=== PATIENT | male | born 1940 | race Caucasian/White ===

== ENCOUNTER 2023-01-06 23:14 | Inpatient (IN) | payer MEDICARE, OTHER ==
[~2023-01-06] VITALS: Ht 180.3 cm; Wt 48.5 kg
[2023-01-06] MEDS ORDERED: methylPREDNISolone SOD SUCC 125 MG/2ML VIAL IV ONE (23:30)
[2023-01-06] MEDS ORDERED: ALBUTEROL FS 2.5 MG/0.5 ML VIAL.NEB NEB ONE (23:30)
[2023-01-07] VITALS (13 sets, daily range): BP systolic 94–123; BP diastolic 69–93; TEMP 97.7–98.4; O2SAT 93–99
[2023-01-07] MEDS ORDERED: DILTIAZEM HCL 50 MG IV IV ONE
[2023-01-07] MEDS ORDERED: methylPREDNISolone SOD SUCC 125 MG/2ML VIAL ONE (00:04)
[2023-01-07] MEDS ORDERED: DILTIAZEM HCL 50 MG IV ONE (00:05)
[2023-01-07 00:20] LABS: BASOPHILS % (AUTO) 0.1 % (0.0-2.0); HEMATOCRIT 41 % (39-51); HEMOGLOBIN 12.7 g/dL (13.5-17.5); LYMPHOCYTES % (AUTO) 7.8 % (20.0-44.0); MEAN CORPUSCULAR HEMOGLOBIN 31 PG (26.0-33.0); MEAN CORPUSCULAR HGB CONC 31 g/dl (31.0-36.0); MEAN CORPUSCULAR VOLUME 99 fL (80-96); MONOCYTES # (AUTO) 0.5 K/uL (0.1-1.30); MONOCYTES % (AUTO) 4.3 % (2.0-12.0); NEUTROPHILS # (AUTO) 10.8 K/uL (1.8-8.9); NEUTROPHILS % (AUTO) 87.8 % (43.0-81.0); PLATELET COUNT (AUTO) 213 K/uL (150-450); RED BLOOD CELL COUNT(AUTO) 4.11 MIL/uL (4.5-6.0); RED CELL DISTRIBUTION WIDTH 15.9 % (11.5-15.0); WHITE BLOOD COUNT (AUTO) 12.3 K/uL (4.3-11.0)
[2023-01-07] MEDS ORDERED: ALBUTEROL FS 2.5 MG/0.5 ML VIAL.NEB ONE (00:29)
[2023-01-07 00:33] LABS: CALCIUM, SERUM 9.1 mg/dL (8.5-10.1); CARBON DIOXIDE 30 mmol/L (21-32); CHLORIDE 108 mmol/L (98-107); CREATININE 0.5 mg/dL (0.6-1.3); GLUCOSE 112 mg/dL (74-106); POTASSIUM 4.5 mmol/L (3.5-5.1); SODIUM SERUM 143 mmol/L (136-145); UREA NITROGEN, BLOOD 24 mg/dL (7-18)
[2023-01-07 00:41] LABS: LACTIC ACID 2.4 mmol/L (0.4-2.0)
[2023-01-07 00:46] LABS: ALANINE AMINOTRANSFERASE 27 U/L (12-78); ALBUMIN 2.1 g/dL (3.4-5.0); ALKALINE PHOSPHATASE 112 U/L (46-116); ASPARTATE AMINOTRANSFERASE 21 U/L (15-37); BILIRUBIN,DIRECT 0.2 mg/dL (0.0-0.2); BILIRUBIN,TOTAL 0.7 mg/dL (0.2-1.0)
[2023-01-07 00:51] LABS: INR 1.04 (0.91-1.10); PARTIAL THROMBOPLASTIN TIME 30.2 SEC (24.3-34.3)
[2023-01-07 01:12] LABS: NT-PRO BNP 1969 pg/mL (0-125)
[2023-01-07] MEDS ORDERED: CEFTRIAXONE 1GM BAG (ER ONLY) 1 GM/50 ML PIGGYBACK IV ONE (02:00)
[2023-01-07] MEDS ORDERED: AZITHROMYCIN 500 MG in IV D5W 250 ML IV ONE (02:00)
[2023-01-07] MEDS ORDERED: CEFTRIAXONE 1GM BAG (ER ONLY) 50 ML IV ONE (02:28)
[2023-01-07] MEDS ORDERED: AZITHROMYCIN 500 MG VIAL ONE (02:28)
[2023-01-07] MEDS ORDERED: ONDANSETRON HCL/PF 4 MG/2 ML VIAL IVP PRN (02:30)
[2023-01-07] MEDS ORDERED: hydrALAZINE HCL IV 20 MG VIAL IV PRN (02:30)
[2023-01-07] MEDS ORDERED: MORPHINE SULFATE INJ 2 MG/ML DISP.SYRIN IV PRN (02:30)
[2023-01-07] MEDS ORDERED: ACETAMINOPHEN 325 MG TABLET PO PRN (02:30)
[2023-01-07] MEDS ORDERED: ALBUTEROL FS 2.5 MG/0.5 ML VIAL.NEB NEB PRN (02:30)
[2023-01-07 03:30] LABS: APPEARANCE,URINE CLEAR (CLEAR); BILIRUBIN,URINE NEGATIVE (NEGATIVE); BLOOD, URINE NEGATIVE Ery/uL (NEGATIVE); COLOR,URINE YELLOW (YELLOW); KETONES,URINE TRACE mg/dL (NEGATIVE); LEUKOCYTE ESTERASE ,URINE NEGATIVE (NEGATIVE); NITRITE, URINE NEGATIVE (NEGATIVE); PROTEIN,URINE TRACE mg/dl (NEGATIVE); UGLUCOSE NEGATIVE (NEGATIVE)
[2023-01-07 04:11] LABS: ADD URINE CULTURE NO; BACTERIA,URINE None seen /HPF (None Seen); MUCUS,URINE Few /LPF (None Seen); RBC,URINE 0-2 /HPF (0-2); SQUAMOUS EPITHELIAL CELL,UR None Seen /HPF (None Seen); WBC,URINE 0-2 /HPF (0-3)
[2023-01-07] MEDS ORDERED: CEFEPIME 2 GM in IV D5W 100 ML IV SCH (05:00)
[2023-01-07] MEDS ORDERED: CEFEPIME 1 GM VIAL ONE (05:21)
[2023-01-07] MEDS ORDERED: IPRATROPIUM/ALBUTEROL INHALER IH SCH (06:00)
[2023-01-07] MEDS ORDERED: ONDA4TAB5 PO (08:21)
[2023-01-07] MEDS ORDERED: FLUT16SP (08:21)
[2023-01-07] MEDS ORDERED: HYDR-3642 PO (08:21)
[2023-01-07] MEDS ORDERED: MAGN400O6 PO (08:21)
[2023-01-07] MEDS ORDERED: FAMO20TA8 PO (08:21)
[2023-01-07] MEDS ORDERED: ACET650S11 RC (08:21)
[2023-01-07] MEDS ORDERED: MAG30ORA PO (08:21)
[2023-01-07] MEDS ORDERED: FURO-145 PO (08:21)
[2023-01-07] MEDS ORDERED: NORT10CA PO (08:21)
[2023-01-07] MEDS ORDERED: PRED5TAB PO (08:21)
[2023-01-07] MEDS ORDERED: APIX2.5T PO (08:21)
[2023-01-07] MEDS ORDERED: CETI-108 PO (08:21)
[2023-01-07] MEDS ORDERED: LISI-768 PO (08:21)
[2023-01-07] MEDS ORDERED: ARGI1POW13 PO (08:21)
[2023-01-07] MEDS ORDERED: AMIN30LI2 PO (08:21)
[2023-01-07] MEDS ORDERED: ACET-2605 PO (08:21)
[2023-01-07] MEDS ORDERED: BISA10SU11 RC (08:21)
[2023-01-07] MEDS ORDERED: LORA2ORA PO (08:21)
[2023-01-07] MEDS ORDERED: ASCO-352 PO (08:21)
[2023-01-07] MEDS ORDERED: ACET-868 PO ×2 (08:21)
[2023-01-07] MEDS ORDERED: ATRO2DRO4 SL (08:21)
[2023-01-07] MEDS ORDERED: POLY15DR40 EACHEYE (08:21)
[2023-01-07] MEDS ORDERED: POTA20TA83 PO (08:21)
[2023-01-07] MEDS ORDERED: MULT-447 PO (08:21)
[2023-01-07] MEDS ORDERED: PRED10TA PO (08:21)
[2023-01-07] MEDS ORDERED: METO25TA3 PO (08:21)
[2023-01-07] MEDS ORDERED: AZEL137S7 (08:21)
[2023-01-07] MEDS ORDERED: ATOR20TA PO (08:21)
[2023-01-07] MEDS ORDERED: ZINC50TA65 PO (08:21)
[2023-01-07] MEDS ORDERED: OLOD4MIS2 IH (08:21)
[2023-01-07] MEDS: FUROSEMIDE 40 MG/4 ML VIAL IV SCH (08:53)
[2023-01-07] MEDS ORDERED: HEPARIN SODIUM, PORCINE 5000 UNITS/1 ML VIAL SQ SCH (09:00)
[2023-01-07] MEDS: ALBUTEROL FS 2.5 MG/0.5 ML VIAL.NEB NEB SCH ×3 (09:03→20:23)
[2023-01-07] MEDS: IPRATROPIUM NEB FS 0.5 MG/2.5 ML AMPUL.NEB IH SCH ×3 (09:04→20:23)
[2023-01-07] MEDS ORDERED: APIXABAN 2.5 MG TABLET PO SCH (10:00)
[2023-01-07] MEDS ORDERED: ATROPINE SULFATE OPHTH SOLN 15 ML BOTTLE SL PRN (10:00)
[2023-01-07] MEDS: METOPROLOL SUCCINATE 25 MG TAB.SR.24H PO SCH (10:43)
[2023-01-07] MEDS: LISINOPRIL (5MG) 5 MG TABLET PO SCH (10:43)
[2023-01-07] MEDS: FAMOTIDINE (20 MG) 20 MG TABLET PO SCH (10:44)
[2023-01-07] MEDS: CEFEPIME 2 GM in IV D5W 100 ML IV SCH ×2 (12:11→20:31)
[2023-01-07] MEDS ORDERED: LIDOCAINE 2%-EPI 1:200,000 20 ML VIAL IJ ONE (14:00)
[2023-01-07] MEDS ORDERED: LIDOCAINE 1%-EPI 1:100,000 20 ML VIAL IJ ONE (14:00)
[2023-01-07] MEDS: methylPREDNISolone SOD SUCC 40 MG/ML VIAL IV SCH ×2 (14:54→21:27)
[2023-01-07] MEDS: THERAHONEY GEL 1.5 OZ TUBE TP SCH (14:56)
[2023-01-07] MEDS: ENSURE ENLIVE CHOC 237 ML CAN PO SCH (16:59)
[2023-01-07] MEDS: APIXABAN 2.5 MG TABLET PO SCH (17:03)
[2023-01-07] MEDS: NORTRIPTYLINE HCL 10 MG CAPSULE PO SCH (21:27)
[2023-01-08] VITALS (15 sets, daily range): BP systolic 90–137; BP diastolic 66–91; TEMP 97.5–97.7; O2SAT 90–100
[2023-01-08] MEDS: ALBUTEROL FS 2.5 MG/0.5 ML VIAL.NEB NEB SCH ×4 (01:21→20:14)
[2023-01-08] MEDS: IPRATROPIUM NEB FS 0.5 MG/2.5 ML AMPUL.NEB IH SCH ×4 (01:21→20:14)
[2023-01-08] MEDS: CEFEPIME 2 GM in IV D5W 100 ML IV SCH ×3 (04:33→20:31)
[2023-01-08] MEDS: methylPREDNISolone SOD SUCC 40 MG/ML VIAL IV SCH ×3 (04:50→22:28)
[2023-01-08 06:52] LABS: HEMATOCRIT 35 % (39-51); HEMOGLOBIN 11.5 g/dL (13.5-17.5); LYMPHOCYTES # (AUTO) 0.8 K/uL (0.8-4.8); LYMPHOCYTES % (AUTO) 6.9 % (20.0-44.0); MEAN CORPUSCULAR HEMOGLOBIN 31 PG (26.0-33.0); MEAN CORPUSCULAR HGB CONC 33 g/dl (31.0-36.0); MEAN CORPUSCULAR VOLUME 95 fL (80-96); MONOCYTES # (AUTO) 0.5 K/uL (0.1-1.30); MONOCYTES % (AUTO) 4.5 % (2.0-12.0); NEUTROPHILS # (AUTO) 9.7 K/uL (1.8-8.9); NEUTROPHILS % (AUTO) 88.6 % (43.0-81.0); PLATELET COUNT (AUTO) 197 K/uL (150-450); RED BLOOD CELL COUNT(AUTO) 3.69 MIL/uL (4.5-6.0); RED CELL DISTRIBUTION WIDTH 14.9 % (11.5-15.0)
[2023-01-08 07:28] LABS: ALANINE AMINOTRANSFERASE 21 U/L (12-78); ALBUMIN 1.8 g/dL (3.4-5.0); ALKALINE PHOSPHATASE 87 U/L (46-116); ASPARTATE AMINOTRANSFERASE 15 U/L (15-37); BILIRUBIN,TOTAL 0.5 mg/dL (0.2-1.0); CALCIUM, SERUM 8.6 mg/dL (8.5-10.1); CARBON DIOXIDE 29 mmol/L (21-32); CHLORIDE 104 mmol/L (98-107); CREATININE 0.5 mg/dL (0.6-1.3); GLUCOSE 115 mg/dL (74-106); MAGNESIUM 1.6 mg/dL (1.8-2.4); PHOSPHORUS 3.7 mg/dL (2.5-4.9); POTASSIUM 3.5 mmol/L (3.5-5.1); SODIUM SERUM 140 mmol/L (136-145); TOTAL PROTEIN, SERUM 5.4 g/dL (6.4-8.2); UREA NITROGEN, BLOOD 20 mg/dL (7-18)
[2023-01-08] MEDS: ENSURE ENLIVE CHOC 237 ML CAN PO SCH ×3 (08:00→17:42)
[2023-01-08] MEDS: LISINOPRIL (5MG) 5 MG TABLET PO SCH (09:00)
[2023-01-08] MEDS: METOPROLOL SUCCINATE 25 MG TAB.SR.24H PO SCH (09:00)
[2023-01-08] MEDS: MULTIVIT W/MINERALS 1 TAB TABLET PO SCH (09:20)
[2023-01-08] MEDS: FUROSEMIDE 40 MG/4 ML VIAL IV SCH (09:20)
[2023-01-08] MEDS: FAMOTIDINE (20 MG) 20 MG TABLET PO SCH (09:20)
[2023-01-08] MEDS: APIXABAN 2.5 MG TABLET PO SCH ×2 (09:21→17:26)
[2023-01-08] MEDS: THERAHONEY GEL 1.5 OZ TUBE TP SCH (09:22)
[2023-01-08] MEDS ORDERED: MAGNESIUM OXIDE 400 MG TABLET PO ONE (11:00)
[2023-01-08] MEDS: NORTRIPTYLINE HCL 10 MG CAPSULE PO SCH (22:28)
[2023-01-09] VITALS (13 sets, daily range): BP systolic 90–117; BP diastolic 73–91; TEMP 97.3–97.5; O2SAT 93–100
[2023-01-09] MEDS: IPRATROPIUM NEB FS 0.5 MG/2.5 ML AMPUL.NEB IH SCH ×5 (02:13→20:53)
[2023-01-09] MEDS: ALBUTEROL FS 2.5 MG/0.5 ML VIAL.NEB NEB SCH ×3 (02:13→13:11)
[2023-01-09] MEDS: CEFEPIME 2 GM in IV D5W 100 ML IV SCH ×2 (04:33→20:49)
[2023-01-09] MEDS: methylPREDNISolone SOD SUCC 40 MG/ML VIAL IV SCH ×3 (04:45→21:39)
[2023-01-09 06:58] LABS: HEMATOCRIT 38 % (39-51); HEMOGLOBIN 12.2 g/dL (13.5-17.5); LYMPHOCYTES # (AUTO) 0.6 K/uL (0.8-4.8); LYMPHOCYTES % (AUTO) 3.5 % (20.0-44.0); MEAN CORPUSCULAR HEMOGLOBIN 31 PG (26.0-33.0); MEAN CORPUSCULAR HGB CONC 32 g/dl (31.0-36.0); MEAN CORPUSCULAR VOLUME 94 fL (80-96); MONOCYTES # (AUTO) 0.8 K/uL (0.1-1.30); MONOCYTES % (AUTO) 4.6 % (2.0-12.0); NEUTROPHILS % (AUTO) 91.9 % (43.0-81.0); PLATELET COUNT (AUTO) 196 K/uL (150-450); RED BLOOD CELL COUNT(AUTO) 3.98 MIL/uL (4.5-6.0); RED CELL DISTRIBUTION WIDTH 14.8 % (11.5-15.0); WHITE BLOOD COUNT (AUTO) 16.3 K/uL (4.3-11.0)
[2023-01-09] MEDS ORDERED: LIDOCAINE MPF 1%-EPI 1:200,000 30 ML VIAL IJ ONE (07:30)
[2023-01-09] MEDS ORDERED: LIDOCAINE 1%-EPI 1:100,000 20 ML VIAL IJ ONE (07:30)
[2023-01-09] MEDS ORDERED: SILVER NITRATE APPLICATOR 1 EA BOX TP PRN (07:30)
[2023-01-09 07:34] LABS: ALANINE AMINOTRANSFERASE 24 U/L (12-78); ALBUMIN 1.9 g/dL (3.4-5.0); ALKALINE PHOSPHATASE 93 U/L (46-116); ASPARTATE AMINOTRANSFERASE 16 U/L (15-37); BILIRUBIN,TOTAL 0.5 mg/dL (0.2-1.0); CARBON DIOXIDE 34 mmol/L (21-32); CHLORIDE 101 mmol/L (98-107); CREATININE 0.7 mg/dL (0.6-1.3); GLUCOSE 142 mg/dL (74-106); MAGNESIUM 2.1 mg/dL (1.8-2.4); PHOSPHORUS 2.9 mg/dL (2.5-4.9); POTASSIUM 3.4 mmol/L (3.5-5.1); SODIUM SERUM 142 mmol/L (136-145); TOTAL PROTEIN, SERUM 5.6 g/dL (6.4-8.2); UREA NITROGEN, BLOOD 27 mg/dL (7-18)
[2023-01-09] MEDS: ENSURE ENLIVE CHOC 237 ML CAN PO SCH ×3 (08:00→17:00)
[2023-01-09] MEDS: FUROSEMIDE 40 MG/4 ML VIAL IV SCH (08:57)
[2023-01-09] MEDS: MULTIVIT W/MINERALS 1 TAB TABLET PO SCH (08:57)
[2023-01-09] MEDS: FAMOTIDINE (20 MG) 20 MG TABLET PO SCH (08:58)
[2023-01-09] MEDS: LISINOPRIL (5MG) 5 MG TABLET PO SCH (08:58)
[2023-01-09] MEDS: METOPROLOL SUCCINATE 25 MG TAB.SR.24H PO SCH (08:58)
[2023-01-09] MEDS: APIXABAN 2.5 MG TABLET PO SCH ×2 (08:59→17:01)
[2023-01-09] MEDS: THERAHONEY GEL 1.5 OZ TUBE TP SCH (09:02)
[2023-01-09] MEDS ORDERED: ENOXAPARIN SODIUM 40 MG/0.4 ML DISP.SYRIN SQ SCH (09:30)
[2023-01-09] MEDS: POTASSIUM CHLORIDE 20 MEQ TAB.PRT.SR PO SCH ×3 (10:26→12:53)
[2023-01-09] MEDS: FUROSEMIDE 100 MG/10 ML VIAL IV SCH ×3 (10:26→17:00)
[2023-01-09] MEDS ORDERED: ALBUTEROL FS 2.5 MG/0.5 ML VIAL.NEB NEB PRN (15:00)
[2023-01-09] MEDS: NORTRIPTYLINE HCL 10 MG CAPSULE PO SCH (21:39)
[2023-01-10] VITALS (11 sets, daily range): BP systolic 105–120; BP diastolic 83–97; TEMP 97.5–97.6; O2SAT 90–99
[2023-01-10] MEDS: IPRATROPIUM NEB FS 0.5 MG/2.5 ML AMPUL.NEB IH SCH ×4 (00:53→20:30)
[2023-01-10] MEDS: methylPREDNISolone SOD SUCC 40 MG/ML VIAL IV SCH ×2 (05:38→13:35)
[2023-01-10 05:58] LABS: BASOPHILS # (AUTO) 0.1 K/uL (0.0-0.2); BASOPHILS % (AUTO) 0.7 % (0.0-2.0); EOSINOPHILS # (AUTO) 0.1 K/uL (0.0-0.7); EOSINOPHILS % (AUTO) 0.3 % (0.0-6.0); HEMATOCRIT 39 % (39-51); HEMOGLOBIN 12.5 g/dL (13.5-17.5); LYMPHOCYTES # (AUTO) 0.5 K/uL (0.8-4.8); LYMPHOCYTES % (AUTO) 2.7 % (20.0-44.0); MEAN CORPUSCULAR HEMOGLOBIN 31 PG (26.0-33.0); MEAN CORPUSCULAR HGB CONC 32 g/dl (31.0-36.0); MEAN CORPUSCULAR VOLUME 95 fL (80-96); MONOCYTES # (AUTO) 0.6 K/uL (0.1-1.30); MONOCYTES % (AUTO) 3.7 % (2.0-12.0); NEUTROPHILS # (AUTO) 15.8 K/uL (1.8-8.9); NEUTROPHILS % (AUTO) 92.6 % (43.0-81.0); PLATELET COUNT (AUTO) 195 K/uL (150-450); RED CELL DISTRIBUTION WIDTH 14.8 % (11.5-15.0)
[2023-01-10 06:16] LABS: ALANINE AMINOTRANSFERASE 27 U/L (12-78); ALBUMIN 2.1 g/dL (3.4-5.0); ALKALINE PHOSPHATASE 103 U/L (46-116); ASPARTATE AMINOTRANSFERASE 19 U/L (15-37); BILIRUBIN,TOTAL 0.5 mg/dL (0.2-1.0); CALCIUM, SERUM 9.4 mg/dL (8.5-10.1); CARBON DIOXIDE 34 mmol/L (21-32); CHLORIDE 100 mmol/L (98-107); CREATININE 0.7 mg/dL (0.6-1.3); GLUCOSE 115 mg/dL (74-106); MAGNESIUM 2.3 mg/dL (1.8-2.4); PHOSPHORUS 2.5 mg/dL (2.5-4.9); POTASSIUM 3.3 mmol/L (3.5-5.1); SODIUM SERUM 141 mmol/L (136-145); TOTAL PROTEIN, SERUM 5.8 g/dL (6.4-8.2); UREA NITROGEN, BLOOD 35 mg/dL (7-18)
[2023-01-10] MEDS: ENSURE ENLIVE CHOC 237 ML CAN PO SCH ×3 (08:00→17:37)
[2023-01-10] MEDS: CEFEPIME 2 GM in IV D5W 100 ML IV SCH ×2 (09:45→21:01)
[2023-01-10] MEDS: MULTIVIT W/MINERALS 1 TAB TABLET PO SCH (09:48)
[2023-01-10] MEDS: FAMOTIDINE (20 MG) 20 MG TABLET PO SCH (09:48)
[2023-01-10] MEDS: APIXABAN 2.5 MG TABLET PO SCH ×2 (10:00→17:42)
[2023-01-10] MEDS ORDERED: POTASSIUM CHLORIDE 20 MEQ TAB.PRT.SR PO SCH (10:00)
[2023-01-10] MEDS: LISINOPRIL (5MG) 5 MG TABLET PO SCH (10:01)
[2023-01-10] MEDS: METOPROLOL SUCCINATE 25 MG TAB.SR.24H PO SCH ×3 (10:18→21:21)
[2023-01-10] MEDS: THERAHONEY GEL 1.5 OZ TUBE TP SCH (11:32)
[2023-01-10] MEDS: NORTRIPTYLINE HCL 10 MG CAPSULE PO SCH (21:20)
[2023-01-11] MEDS: IPRATROPIUM NEB FS 0.5 MG/2.5 ML AMPUL.NEB IH SCH ×3 (01:30→14:28)
[2023-01-11 07:47] VITALS: O2SAT 92
[2023-01-11 07:57] VITALS: O2SAT 99
[2023-01-11 08:00] VITALS: BP 105/81; TEMP 98.6; O2SAT 92
[2023-01-11] MEDS: ENSURE ENLIVE CHOC 237 ML CAN PO SCH ×2 (08:38→12:00)
[2023-01-11] MEDS: FAMOTIDINE (20 MG) 20 MG TABLET PO SCH (08:41)
[2023-01-11] MEDS: MULTIVIT W/MINERALS 1 TAB TABLET PO SCH (08:41)
[2023-01-11] MEDS: LISINOPRIL (5MG) 5 MG TABLET PO SCH (08:41)
[2023-01-11] MEDS: CEFEPIME 2 GM in IV D5W 100 ML IV SCH (08:41)
[2023-01-11] MEDS: METOPROLOL SUCCINATE 25 MG TAB.SR.24H PO SCH ×2 (08:42→13:19)
[2023-01-11] MEDS: APIXABAN 2.5 MG TABLET PO SCH (08:43)
[2023-01-11] MEDS: THERAHONEY GEL 1.5 OZ TUBE TP SCH (08:44)
[2023-01-11 11:57] LABS: CALCIUM, SERUM 9.6 mg/dL (8.5-10.1); CREATININE 0.8 mg/dL (0.6-1.3); POTASSIUM 4.2 mmol/L (3.5-5.1)
[2023-01-11 13:19] VITALS: BP 119/89
[2023-01-11 14:28] VITALS: O2SAT 94
[2023-01-11 14:38] VITALS: O2SAT 98
[2023-01-12] MEDS ORDERED: IPRA0.2S9 IH (09:10)
[2023-01-12] MEDS ORDERED: ALBU1.257 IH (09:10)
== END 2023-01-11 14:30 | DRG 871 ==
LOC: ER 23:27 → TELE 01-07 03:03 → MED 01-09 12:06
PROVIDERS: ATTEND Internal Medicine
DX: A41.9 Sepsis, unspecified organism (principal); I50.33 Acute on chronic diastolic (congestive) heart failure; J96.01 Acute respiratory failure with hypoxia; J18.9 Pneumonia, unspecified organism; J44.0 Chronic obstructive pulmonary disease with (acute) lower respiratory infection; J44.1 Chronic obstructive pulmonary disease with (acute) exacerbation; E87.20 Acidosis, unspecified; I42.9 Cardiomyopathy, unspecified; I48.20 Chronic atrial fibrillation, unspecified; D68.69 Other thrombophilia; I11.0 Hypertensive heart disease with heart failure; E87.6 Hypokalemia; F32.9 Major depressive disorder, single episode, unspecified; Z79.01 Long term (current) use of anticoagulants; Z86.73 Personal history of transient ischemic attack (TIA), and cerebral infarction without residual deficits; F03.90 Unspecified dementia, unspecified severity, without behavioral disturbance, psychotic disturbance, mood disturbance, and anxiety; R53.1 Weakness; I73.9 Peripheral vascular disease, unspecified; L89.156 Pressure-induced deep tissue damage of sacral region; L89.100 Pressure ulcer of unspecified part of back, unstageable; L89.020 Pressure ulcer of left elbow, unstageable; F09 Unspecified mental disorder due to known physiological condition; S91.302A Unspecified open wound, left foot, initial encounter; S91.301A Unspecified open wound, right foot, initial encounter; X58.XXXA Exposure to other specified factors, initial encounter; Y93.9 Activity, unspecified; Y92.129 Unspecified place in nursing home as the place of occurrence of the external cause; S90.821A Blister (nonthermal), right foot, initial encounter; Z20.822 Contact with and (suspected) exposure to COVID-19
CPT/HCPCS: 36415; 71045-TC; 71250-TC; 80048-TC; 80053-TC; 80076-TC; 81001; 83605-TC; 83735-TC; 83880; 84100-TC; 84484-TC; 85025-TC; 85730-TC; 87040-TC; 93307-TC; 94799-TC; A4223; A6403; C9803; G0378; J0456; J0692; J0696; J1644; J1940; J2270; J2920; J2930; J3490; J7040; J7060

== ENCOUNTER 2023-01-12 07:48 | Inpatient (IN) | payer OTHER ==
[2023-01-12] VITALS (15 sets, daily range): BP systolic 76–179; BP diastolic 57–157; TEMP 98.7; O2SAT 91–98
[~2023-01-12] VITALS: Ht 177.8 cm; Wt 61.7 kg
[~2023-01-12 07:48] MED LIST: ACET-2605 PO; ACET-868 PO; ACET650S11 RC; AMIN30LI2 PO; APIX2.5T PO; ARGI1POW13 PO; ASCO-352 PO; ATOR20TA PO; ATRO2DRO4 SL; AZEL137S7; BISA10SU11 RC; CETI-108 PO; FAMO20TA8 PO; FLUT16SP; FURO-145 PO; HYDR-3642 PO; LISI-768 PO; LORA2ORA PO; MAG30ORA PO; MAGN400O6 PO; METO25TA3 PO; MULT-447 PO; NORT10CA PO; OLOD4MIS2 IH; ONDA4TAB5 PO; POLY15DR40 EACHEYE; POTA20TA83 PO; PRED10TA PO; PRED5TAB PO; ZINC50TA65 PO
[2023-01-12] MEDS ORDERED: IV NS 0.9% 1,000 ML BAG IV ONE (08:30)
[2023-01-12 09:03] LABS: APPEARANCE,URINE CLEAR (CLEAR); BILIRUBIN,URINE NEGATIVE (NEGATIVE); BLOOD, URINE 2+ Ery/uL (NEGATIVE); COLOR,URINE DARK YELLOW (YELLOW); KETONES,URINE 1+ mg/dL (NEGATIVE); LEUKOCYTE ESTERASE ,URINE NEGATIVE (NEGATIVE); NITRITE, URINE NEGATIVE (NEGATIVE); PROTEIN,URINE 2+ mg/dl (NEGATIVE); UGLUCOSE NEGATIVE (NEGATIVE); UROBILINOGEN,URINE 0.2 EU/dL (0.2)
[2023-01-12] MEDS ORDERED: IPRA0.2S9 IH (09:10)
[2023-01-12] MEDS ORDERED: ALBU1.257 IH (09:10)
[2023-01-12 09:11] LABS: BASOPHILS % (AUTO) 0.2 % (0.0-2.0); EOSINOPHILS % (AUTO) 0.1 % (0.0-6.0); HEMATOCRIT 33 % (39-51); HEMOGLOBIN 10.8 g/dL (13.5-17.5); LYMPHOCYTES % (AUTO) 6.7 % (20.0-44.0); MEAN CORPUSCULAR HEMOGLOBIN 32 PG (26.0-33.0); MEAN CORPUSCULAR HGB CONC 33 g/dl (31.0-36.0); MEAN CORPUSCULAR VOLUME 97 fL (80-96); MONOCYTES # (AUTO) 0.6 K/uL (0.1-1.30); NEUTROPHILS # (AUTO) 12.7 K/uL (1.8-8.9); PLATELET COUNT (AUTO) 123 K/uL (150-450); RED BLOOD CELL COUNT(AUTO) 3.43 MIL/uL (4.5-6.0); RED CELL DISTRIBUTION WIDTH 14.6 % (11.5-15.0); WHITE BLOOD COUNT (AUTO) 14.3 K/uL (4.3-11.0)
[2023-01-12 09:15] LABS: ADD URINE CULTURE NO; BACTERIA,URINE 1+ /HPF (None Seen); MUCUS,URINE Moderate /LPF (None Seen); WBC,URINE 0-2 /HPF (0-3)
[2023-01-12 09:24] LABS: INR 1.23 (0.91-1.10); PARTIAL THROMBOPLASTIN TIME 34.5 SEC (24.3-34.3); PROTHROMBIN TIME 12.9 SECS (9.2-11.1)
[2023-01-12 09:25] LABS: ALANINE AMINOTRANSFERASE 22 U/L (12-78); ALKALINE PHOSPHATASE 82 U/L (46-116); ASPARTATE AMINOTRANSFERASE 24 U/L (15-37); BILIRUBIN,DIRECT 0.3 mg/dL (0.0-0.2); BILIRUBIN,TOTAL 0.8 mg/dL (0.2-1.0); CALCIUM, SERUM 8.7 mg/dL (8.5-10.1); CARBON DIOXIDE 29 mmol/L (21-32); CHLORIDE 103 mmol/L (98-107); CREATININE 0.9 mg/dL (0.6-1.3); GLUCOSE 88 mg/dL (74-106); POTASSIUM 3.3 mmol/L (3.5-5.1); SODIUM SERUM 137 mmol/L (136-145); TOTAL PROTEIN, SERUM 4.7 g/dL (6.4-8.2); UREA NITROGEN, BLOOD 41 mg/dL (7-18)
[2023-01-12 09:27] LABS: LACTIC ACID 1.1 mmol/L (0.4-2.0)
[2023-01-12 09:38] LABS: ALBUMIN 1.4 g/dL (3.4-5.0)
[2023-01-12] MEDS ORDERED: VANCOMYCIN 1 GM in IV D5W 250 ML IV ONE (10:00)
[2023-01-12] MEDS ORDERED: CEFEPIME 1 GM in IV D5W 50 ML IV ONE (10:00)
[2023-01-12] MEDS ORDERED: MAGNESIUM HYDROXIDE 30 ML UDC PO PRN (15:00)
[2023-01-12] MEDS ORDERED: NOREPINEPHRINE 8 MG in IV NS 0.9% 242 ML IV PRN (15:00)
[2023-01-12] MEDS ORDERED: ACETAMINOPHEN 325 MG TABLET PO PRN (15:00)
[2023-01-12] MEDS ORDERED: MAG HYDROX/AL HYDROX/SIMETH 30 ML UDC PO PRN (15:00)
[2023-01-12] MEDS ORDERED: ENOXAPARIN SODIUM 40 MG/0.4 ML DISP.SYRIN SQ SCH (15:00)
[2023-01-12] MEDS ORDERED: ONDANSETRON HCL/PF 4 MG/2 ML VIAL IVP PRN (15:00)
[2023-01-12] MEDS ORDERED: ZOLPIDEM TARTRATE 5 MG TABLET PO PRN (15:00)
[2023-01-12] MEDS ORDERED: Z GUARD REMEDY 4 OZ OINT TP PRN (15:00)
[2023-01-12] MEDS ORDERED: NOREPINEPHRINE 8MG/250ML RTU 250 ML IV ONE (15:16)
[2023-01-12] MEDS ORDERED: ATROPINE SULFATE OPHTH SOLN 15 ML BOTTLE SL PRN (15:30)
[2023-01-12] MEDS ORDERED: IV NS 0.9% 500 ML BAG IV ONE (16:00)
[2023-01-12] MEDS ORDERED: APIXABAN 2.5 MG TABLET PO SCH (17:00)
[2023-01-12] MEDS: NORTRIPTYLINE HCL 10 MG CAPSULE PO SCH (21:39)
[2023-01-12] MEDS: NOREPINEPHRINE 8 MG in IV NS 0.9% 242 ML IV PRN (21:43)
[2023-01-12] MEDS: CEFEPIME 2 GM in IV D5W 100 ML IV SCH (21:44)
[2023-01-13] VITALS (79 sets, daily range): BP systolic 88–132; BP diastolic 62–92; TEMP 97.9–98.6; O2SAT 88–100
[2023-01-13] MEDS: VANCOMYCIN HCL 0.75 GM in IV D5W 250 ML IV SCH ×2 (01:02→12:16)
[2023-01-13 05:01] LABS: BASOPHILS % (AUTO) 0.1 % (0.0-2.0); EOSINOPHILS % (AUTO) 0.3 % (0.0-6.0); HEMATOCRIT 32 % (39-51); HEMOGLOBIN 10.5 g/dL (13.5-17.5); LYMPHOCYTES # (AUTO) 0.6 K/uL (0.8-4.8); LYMPHOCYTES % (AUTO) 4.4 % (20.0-44.0); MEAN CORPUSCULAR HEMOGLOBIN 31 PG (26.0-33.0); MEAN CORPUSCULAR HGB CONC 33 g/dl (31.0-36.0); MEAN CORPUSCULAR VOLUME 96 fL (80-96); MONOCYTES # (AUTO) 0.5 K/uL (0.1-1.30); MONOCYTES % (AUTO) 3.5 % (2.0-12.0); NEUTROPHILS # (AUTO) 12.6 K/uL (1.8-8.9); NEUTROPHILS % (AUTO) 91.7 % (43.0-81.0); PLATELET COUNT (AUTO) 136 K/uL (150-450); RED BLOOD CELL COUNT(AUTO) 3.37 MIL/uL (4.5-6.0); RED CELL DISTRIBUTION WIDTH 14.9 % (11.5-15.0); WHITE BLOOD COUNT (AUTO) 13.8 K/uL (4.3-11.0)
[2023-01-13 05:21] LABS: CHOLESTEROL 106 mg/dL (<200); HDL CHOLESTEROL 44 mg/dL (40-60); LDL 46 mg/dL (0-99); TRIGLYCERIDES 67 mg/dL (30-150)
[2023-01-13 05:24] LABS: CALCIUM, SERUM 8.6 mg/dL (8.5-10.1); CARBON DIOXIDE 28 mmol/L (21-32); CHLORIDE 103 mmol/L (98-107); CREATININE 0.6 mg/dL (0.6-1.3); GLUCOSE 123 mg/dL (74-106); MAGNESIUM 1.6 mg/dL (1.8-2.4); PHOSPHORUS 2.2 mg/dL (2.5-4.9); SODIUM SERUM 139 mmol/L (136-145); UREA NITROGEN, BLOOD 27 mg/dL (7-18)
[2023-01-13] MEDS: NOREPINEPHRINE 8 MG in IV NS 0.9% 242 ML IV PRN (05:52)
[2023-01-13] MEDS: POTASSIUM CL. PREMIX PERIPHER. 50 ML IV SCH ×6 (08:20→13:26)
[2023-01-13] MEDS: Magnesium 1GM/D5W 100ML PREMIX 100 ML IV SCH ×2 (08:29→10:20)
[2023-01-13] MEDS: CEFEPIME 2 GM in IV D5W 100 ML IV SCH ×2 (08:30→20:05)
[2023-01-13] MEDS ORDERED: THERAHONEY GEL 1.5 OZ TUBE TP SCH (09:00)
[2023-01-13] MEDS: predniSONE 5 MG TABLET PO SCH (09:00)
[2023-01-13] MEDS ORDERED: METOPROLOL SUCCINATE 25 MG TAB.SR.24H PO SCH (09:00)
[2023-01-13] MEDS: PANTOPRAZOLE 40 MG VIAL IV SCH (09:10)
[2023-01-13] MEDS ORDERED: Sodium Phosphate 15 MMOL in IV NS 0.9% 245 ML IV SCH (10:00)
[2023-01-13] MEDS: DIGOXIN INJ 0.5 MG/2 ML AMPUL IV SCH ×2 (11:24→18:14)
[2023-01-13] MEDS ORDERED: IV NS 0.9% 1,000 ML IV PRN (11:30)
[2023-01-13] MEDS ORDERED: IV NS 0.9% 1,000 ML BAG IV PRN (11:30)
[2023-01-13] MEDS: THERAHONEY GEL 1.5 OZ TUBE TP SCH (14:38)
[2023-01-13] MEDS: NORTRIPTYLINE HCL 10 MG CAPSULE PO SCH (22:00)
[2023-01-13 22:43] LABS: ABG BASE EXCESS 3.7 mmol/L; ABG PCO2 39.1 mmHg (35.0-45.0); ABG PH 7.467 (7.350-7.450); ABG PO2 55.1 mmHg (75.0-100.0); ABG TOTAL HEMOGLOBIN 12.1 G/dL (13.5-18.0); AaDO2 156.2 mmHg; MetHb 0.3 % (0.0-1.5); O2Hb 89.7 % (94.0-97.0); SITE, ABG Right Radial; VENT MODE, BG Nasal Cannula
[2023-01-14] VITALS (25 sets, daily range): BP systolic 98–131; BP diastolic 63–83; TEMP 97.7–98.5; O2SAT 90–100
[2023-01-14] MEDS: DIGOXIN INJ 0.5 MG/2 ML AMPUL IV SCH (00:11)
[2023-01-14] MEDS: VANCOMYCIN HCL 0.75 GM in IV D5W 250 ML IV SCH ×2 (00:11→12:04)
[2023-01-14 05:10] LABS: INR 1.06 (0.91-1.10); PARTIAL THROMBOPLASTIN TIME 32.3 SEC (24.3-34.3); PROTHROMBIN TIME 11.2 SECS (9.2-11.1)
[2023-01-14 05:38] LABS: CALCIUM, SERUM 8.1 mg/dL (8.5-10.1); CARBON DIOXIDE 27 mmol/L (21-32); CHLORIDE 104 mmol/L (98-107); CREATININE 0.6 mg/dL (0.6-1.3); GLUCOSE 74 mg/dL (74-106); PHOSPHORUS 2.4 mg/dL (2.5-4.9); POTASSIUM 3.4 mmol/L (3.5-5.1); SODIUM SERUM 136 mmol/L (136-145); UREA NITROGEN, BLOOD 20 mg/dL (7-18)
[2023-01-14] MEDS ORDERED: LIDOCAINE 1%-EPI 1:100,000 20 ML VIAL TP ONE (07:30)
[2023-01-14] MEDS ORDERED: SILVER NITRATE APPLICATOR 1 EA BOX TP PRN (07:30)
[2023-01-14] MEDS: CEFEPIME 2 GM in IV D5W 100 ML IV SCH ×2 (08:47→20:40)
[2023-01-14] MEDS: POTASSIUM CL. PREMIX PERIPHER. 50 ML IV SCH ×2 (08:47→10:04)
[2023-01-14] MEDS: PANTOPRAZOLE 40 MG VIAL IV SCH (08:48)
[2023-01-14] MEDS: THERAHONEY GEL 1.5 OZ TUBE TP SCH (08:49)
[2023-01-14] MEDS: predniSONE 5 MG TABLET PO SCH (09:00)
[2023-01-14] MEDS ORDERED: IV NS 0.9% 250 ML IV PRN ×2 (09:00)
[2023-01-14] MEDS ORDERED: Sodium Phosphate 15 MMOL in IV NS 0.9% 245 ML IV SCH (11:00)
[2023-01-14] MEDS: NORTRIPTYLINE HCL 10 MG CAPSULE PO SCH (20:40)
[2023-01-15] VITALS (13 sets, daily range): BP systolic 101–130; BP diastolic 63–96; TEMP 97.3–98.3; O2SAT 92–98
[2023-01-15] MEDS: VANCOMYCIN HCL 0.75 GM in IV D5W 250 ML IV SCH ×3 (00:29→23:53)
[2023-01-15 06:38] LABS: CALCIUM, SERUM 8.5 mg/dL (8.5-10.1); CREATININE 0.7 mg/dL (0.6-1.3); PHOSPHORUS 2.6 mg/dL (2.5-4.9); POTASSIUM 2.9 mmol/L (3.5-5.1)
[2023-01-15] MEDS: predniSONE 5 MG TABLET PO SCH (09:00)
[2023-01-15] MEDS: PANTOPRAZOLE 40 MG VIAL IV SCH (09:15)
[2023-01-15] MEDS: CEFEPIME 2 GM in IV D5W 100 ML IV SCH ×2 (09:15→20:48)
[2023-01-15] MEDS: THERAHONEY GEL 1.5 OZ TUBE TP SCH (09:16)
[2023-01-15] MEDS: POTASSIUM CL. PREMIX PERIPHER. 50 ML IV SCH ×8 (09:53→17:10)
[2023-01-15] MEDS: NORTRIPTYLINE HCL 10 MG CAPSULE PO SCH (22:00)
[2023-01-16] VITALS: BP 129/82; TEMP 97.9; O2SAT 97
[2023-01-16 04:00] VITALS: BP 127/83; TEMP 98.6; O2SAT 96
[2023-01-16 07:23] LABS: CALCIUM, SERUM 9.2 mg/dL (8.5-10.1); CREATININE 0.8 mg/dL (0.6-1.3); POTASSIUM 3.9 mmol/L (3.5-5.1)
[2023-01-16 08:00] VITALS: BP 112/69; TEMP 98.6; O2SAT 96
[2023-01-16] MEDS: PANTOPRAZOLE 40 MG VIAL IV SCH (08:42)
[2023-01-16] MEDS: CEFEPIME 2 GM in IV D5W 100 ML IV SCH ×2 (08:42→21:22)
[2023-01-16] MEDS: THERAHONEY GEL 1.5 OZ TUBE TP SCH (08:45)
[2023-01-16] MEDS: predniSONE 5 MG TABLET PO SCH (08:45)
[2023-01-16] MEDS: DAKINS QUARTER STRENGTH (0.125%) 480 ML BOTTLE TOP SCH (10:06)
[2023-01-16 10:21] LABS: ABG BASE EXCESS -2.7 mmol/L; ABG OXYGEN SATURATION 99.4 % (92.0-98.5); ABG PCO2 35.3 mmHg (35.0-45.0); ABG PH 7.403 (7.350-7.450); ABG PO2 290.6 mmHg (75.0-100.0); AaDO2 387.1 mmHg; COHb 0.3 % (0.5-1.5); MetHb 0.2 % (0.0-1.5); O2Hb 98.9 % (94.0-97.0); SITE, ABG Right Femoral; VENT MODE, BG non rebreather
[2023-01-16] MEDS ORDERED: BUMETANIDE INJ 4 MG in IV D5W 24 ML IV ONE (11:00)
[2023-01-16] MEDS: DIGOXIN INJ 0.5 MG/2 ML AMPUL IV SCH ×2 (11:12→17:19)
[2023-01-16] MEDS: VANCOMYCIN HCL 0.75 GM in IV D5W 250 ML IV SCH (11:53)
[2023-01-16 12:00] VITALS: BP 98/52; TEMP 98.6; O2SAT 96
[2023-01-16 17:20] VITALS: BP 100/58; TEMP 98.6; O2SAT 96
[2023-01-16 20:00] VITALS: BP 100/62; TEMP 97.9; O2SAT 95
[2023-01-16] MEDS: NORTRIPTYLINE HCL 10 MG CAPSULE PO SCH (21:38)
[2023-01-17] VITALS (10 sets, daily range): BP systolic 88–105; BP diastolic 45–83; TEMP 97.3–98.5; O2SAT 90–100
[2023-01-17] MEDS: DIGOXIN INJ 0.5 MG/2 ML AMPUL IV SCH ×2 (00:26→12:45)
[2023-01-17] MEDS: VANCOMYCIN 500 MG in IV D5W 100ml IV SCH ×2 (01:22→13:48)
[2023-01-17] MEDS ORDERED: DEXTROSE 50%-WATER 50 ML DISP.SYRIN ONE (04:45)
[2023-01-17] MEDS ORDERED: DEXTROSE 50%-WATER 50 ML DISP.SYRIN IVP ONE (04:47)
[2023-01-17] MEDS: ALBUTEROL FS 2.5 MG/0.5 ML VIAL.NEB NEB PRN (05:04)
[2023-01-17] MEDS ORDERED: IV NS 0.9% 250 ML IV ONE (06:00)
[2023-01-17] MEDS ORDERED: DIGOXIN 0.25 MG TABLET PO SCH ×2 (07:00→13:00)
[2023-01-17 07:17] LABS: CARBON DIOXIDE 23 mmol/L (21-32); CHLORIDE 107 mmol/L (98-107); GLUCOSE 144 mg/dL (74-106); SODIUM SERUM 142 mmol/L (136-145); UREA NITROGEN, BLOOD 22 mg/dL (7-18)
[2023-01-17 07:20] LABS: POTASSIUM 2.7 mmol/L (3.5-5.1)
[2023-01-17] MEDS ORDERED: IV D5/0.45 NACL 1,000 ML IV SCH (08:00)
[2023-01-17 08:05] LABS: MAGNESIUM 1.8 mg/dL (1.8-2.4); PHOSPHORUS 3.1 mg/dL (2.5-4.9)
[2023-01-17] MEDS: PANTOPRAZOLE 40 MG VIAL IV SCH (08:10)
[2023-01-17] MEDS: POTASSIUM CL. PREMIX PERIPHER. 50 ML IV SCH ×4 (08:10→11:20)
[2023-01-17] MEDS: THERAHONEY GEL 1.5 OZ TUBE TP SCH (08:15)
[2023-01-17] MEDS: DAKINS QUARTER STRENGTH (0.125%) 480 ML BOTTLE TOP SCH (08:15)
[2023-01-17] MEDS: CEFEPIME 2 GM in IV D5W 100 ML IV SCH ×2 (09:15→21:14)
[2023-01-17] MEDS: methylPREDNISolone SOD SUCC 40 MG/ML VIAL IV SCH ×2 (12:25→21:13)
[2023-01-17] MEDS: NORTRIPTYLINE HCL 10 MG CAPSULE PO SCH (21:14)
[2023-01-18] VITALS (11 sets, daily range): BP systolic 81–105; BP diastolic 57–74; TEMP 97.5–98.1; O2SAT 88–100
[2023-01-18] MEDS: VANCOMYCIN 500 MG in IV D5W 100ml IV SCH (01:09)
[2023-01-18] MEDS: methylPREDNISolone SOD SUCC 40 MG/ML VIAL IV SCH ×3 (05:12→22:04)
[2023-01-18 07:00] LABS: BASOPHILS % (AUTO) 0.3 % (0.0-2.0); HEMATOCRIT 36 % (39-51); HEMOGLOBIN 11.6 g/dL (13.5-17.5); LYMPHOCYTES # (AUTO) 0.6 K/uL (0.8-4.8); LYMPHOCYTES % (AUTO) 4.4 % (20.0-44.0); MEAN CORPUSCULAR HEMOGLOBIN 31 PG (26.0-33.0); MEAN CORPUSCULAR HGB CONC 32 g/dl (31.0-36.0); MEAN CORPUSCULAR VOLUME 97 fL (80-96); MONOCYTES # (AUTO) 0.6 K/uL (0.1-1.30); NEUTROPHILS % (AUTO) 91.3 % (43.0-81.0); PLATELET COUNT (AUTO) 131 K/uL (150-450); RED BLOOD CELL COUNT(AUTO) 3.72 MIL/uL (4.5-6.0); RED CELL DISTRIBUTION WIDTH 15.1 % (11.5-15.0); WHITE BLOOD COUNT (AUTO) 14.2 K/uL (4.3-11.0)
[2023-01-18 07:14] LABS: CREATININE 0.8 mg/dL (0.6-1.3); POTASSIUM 3.2 mmol/L (3.5-5.1)
[2023-01-18] MEDS ORDERED: FUROSEMIDE 20 MG/2 ML VIAL IV ONE (08:30)
[2023-01-18] MEDS: CEFEPIME 2 GM in IV D5W 100 ML IV SCH ×2 (08:37→21:58)
[2023-01-18] MEDS: PANTOPRAZOLE 40 MG VIAL IV SCH (08:37)
[2023-01-18] MEDS: THERAHONEY GEL 1.5 OZ TUBE TP SCH (09:01)
[2023-01-18] MEDS: DAKINS QUARTER STRENGTH (0.125%) 480 ML BOTTLE TOP SCH (09:01)
[2023-01-18] MEDS: POTASSIUM CL. PREMIX PERIPHER. 50 ML IV SCH ×6 (09:28→14:09)
[2023-01-18] MEDS: DIGOXIN INJ 0.5 MG/2 ML AMPUL IV SCH (13:10)
[2023-01-18] MEDS: NORTRIPTYLINE HCL 10 MG CAPSULE PO SCH (22:00)
[2023-01-18] MEDS: ALBUTEROL FS 2.5 MG/0.5 ML VIAL.NEB NEB PRN (22:46)
[2023-01-19] VITALS: BP 90/62; TEMP 97.7; O2SAT 95
[2023-01-19 04:00] VITALS: BP 90/60; TEMP 97.9; O2SAT 95
[2023-01-19] MEDS: methylPREDNISolone SOD SUCC 40 MG/ML VIAL IV SCH ×3 (04:17→19:53)
[2023-01-19 06:51] LABS: BILIRUBIN,TOTAL 0.4 mg/dL (0.2-1.0); CALCIUM, SERUM 9.3 mg/dL (8.5-10.1); CREATININE 1.3 mg/dL (0.6-1.3); MAGNESIUM 1.8 mg/dL (1.8-2.4); POTASSIUM 3.7 mmol/L (3.5-5.1)
[2023-01-19 06:54] LABS: BASOPHILS % (AUTO) 0.1 % (0.0-2.0); HEMATOCRIT 35 % (39-51); HEMOGLOBIN 11.4 g/dL (13.5-17.5); LYMPHOCYTES # (AUTO) 0.5 K/uL (0.8-4.8); LYMPHOCYTES % (AUTO) 2.3 % (20.0-44.0); MEAN CORPUSCULAR HEMOGLOBIN 31 PG (26.0-33.0); MEAN CORPUSCULAR HGB CONC 33 g/dl (31.0-36.0); MEAN CORPUSCULAR VOLUME 96 fL (80-96); MONOCYTES # (AUTO) 0.7 K/uL (0.1-1.30); MONOCYTES % (AUTO) 3.3 % (2.0-12.0); NEUTROPHILS # (AUTO) 21.4 K/uL (1.8-8.9); NEUTROPHILS % (AUTO) 94.3 % (43.0-81.0); PLATELET COUNT (AUTO) 153 K/uL (150-450); RED BLOOD CELL COUNT(AUTO) 3.66 MIL/uL (4.5-6.0); RED CELL DISTRIBUTION WIDTH 14.9 % (11.5-15.0); WHITE BLOOD COUNT (AUTO) 22.7 K/uL (4.3-11.0)
[2023-01-19 07:05] LABS: ALBUMIN 1.1 g/dL (3.4-5.0)
[2023-01-19 08:00] VITALS: BP 97/64; TEMP 97.9; O2SAT 90
[2023-01-19] MEDS ORDERED: VANCOMYCIN 0.75 GM in IV D5W 250 ML IV SCH ×4 (08:00)
[2023-01-19] MEDS: CEFEPIME 2 GM in IV D5W 100 ML IV SCH ×2 (08:42→20:35)
[2023-01-19] MEDS: DAKINS QUARTER STRENGTH (0.125%) 480 ML BOTTLE TOP SCH (08:42)
[2023-01-19] MEDS: THERAHONEY GEL 1.5 OZ TUBE TP SCH (08:42)
[2023-01-19] MEDS: PANTOPRAZOLE 40 MG VIAL IV SCH (08:42)
[2023-01-19 12:00] VITALS: BP 98/64; TEMP 97.5; O2SAT 92
[2023-01-19] MEDS: DIGOXIN INJ 0.5 MG/2 ML AMPUL IV SCH (12:23)
[2023-01-19 16:00] VITALS: BP 103/64; TEMP 97.5; O2SAT 92
[2023-01-19 20:00] VITALS: BP 100/66; TEMP 97.2; O2SAT 99
[2023-01-19] MEDS: NORTRIPTYLINE HCL 10 MG CAPSULE PO SCH (22:00)
[2023-01-20] VITALS: BP 105/82; TEMP 97.4; O2SAT 97
[2023-01-20] MEDS ORDERED: VANCOMYCIN 0.75 GM in IV D5W 250 ML IV SCH ×2 (02:00→08:00)
[2023-01-20 04:00] VITALS: BP 92/61; TEMP 97.2; O2SAT 97
[2023-01-20 07:02] LABS: CALCIUM, SERUM 9.6 mg/dL (8.5-10.1); CARBON DIOXIDE 22 mmol/L (21-32); CHLORIDE 110 mmol/L (98-107); CREATININE 1.7 mg/dL (0.6-1.3); GLUCOSE 74 mg/dL (74-106); POTASSIUM 4.6 mmol/L (3.5-5.1); SODIUM SERUM 143 mmol/L (136-145); UREA NITROGEN, BLOOD 55 mg/dL (7-18)
[2023-01-20] MEDS: methylPREDNISolone SOD SUCC 40 MG/ML VIAL IV SCH ×2 (07:43→19:48)
[2023-01-20 08:00] VITALS: BP 107/71; TEMP 97.6
[2023-01-20] MEDS: PANTOPRAZOLE 40 MG VIAL IV SCH (08:56)
[2023-01-20] MEDS: CEFEPIME 2 GM in IV D5W 100 ML IV SCH (08:56)
[2023-01-20] MEDS: THERAHONEY GEL 1.5 OZ TUBE TP SCH (08:58)
[2023-01-20] MEDS: DAKINS QUARTER STRENGTH (0.125%) 480 ML BOTTLE TOP SCH (08:58)
[2023-01-20 09:17] LABS: BASOPHILS # (AUTO) 0.1 K/uL (0.0-0.2); BASOPHILS % (AUTO) 0.4 % (0.0-2.0); HEMATOCRIT 40 % (39-51); HEMOGLOBIN 12.2 g/dL (13.5-17.5); LYMPHOCYTES # (AUTO) 0.6 K/uL (0.8-4.8); LYMPHOCYTES % (AUTO) 1.8 % (20.0-44.0); MEAN CORPUSCULAR HEMOGLOBIN 30 PG (26.0-33.0); MEAN CORPUSCULAR HGB CONC 31 g/dl (31.0-36.0); MEAN CORPUSCULAR VOLUME 99 fL (80-96); MONOCYTES # (AUTO) 0.9 K/uL (0.1-1.30); MONOCYTES % (AUTO) 2.7 % (2.0-12.0); NEUTROPHILS # (AUTO) 30.8 K/uL (1.8-8.9); NEUTROPHILS % (AUTO) 95.1 % (43.0-81.0); PLATELET COUNT (AUTO) 144 K/uL (150-450); RED BLOOD CELL COUNT(AUTO) 4.05 MIL/uL (4.5-6.0); RED CELL DISTRIBUTION WIDTH 15.6 % (11.5-15.0)
[2023-01-20 09:28] LABS: WHITE BLOOD COUNT (AUTO) 32.5 K/uL (4.3-11.0)
[2023-01-20] MEDS ORDERED: TPN BAG #2 IV SCH ×4 (09:51)
[2023-01-20] MEDS ORDERED: TPN/PPN PER PHARMACY IV PRN (11:00)
[2023-01-20 12:00] VITALS: BP 94/56; TEMP 97.6
[2023-01-20] MEDS: DIGOXIN INJ 0.5 MG/2 ML AMPUL IV SCH (12:49)
[2023-01-20 16:00] VITALS: BP 88/56; TEMP 97.5; O2SAT 97
[2023-01-20] MEDS ORDERED: DEXTROSE 50%-WATER 50 ML DISP.SYRIN IV PRN (16:00)
[2023-01-20] MEDS ORDERED: TPN BAG #1 IV SCH ×4 (17:00)
[2023-01-20 18:04] LABS: ANISOCYTOSIS 1+; BAND % (MANUAL) 4 % (0.0-5.0); EOSINOPHILS % (MANUAL) 1 % (0-4); LYMPHOCYTES % (MANUAL) 2 % (16-48); MONOCYTES % (MANUAL) 2 % (0-11.0); NEUTROPHILS % (MANUAL) 91 (42-76); OVALOCYTES 1+; PLATELET ESTIMATE DECREASED
[2023-01-20] MEDS: BLOOD SUGAR DIAGNOSTIC 1 EACH STRIP IN SCH ×2 (18:48→23:12)
[2023-01-20 20:00] VITALS: BP 134/67; TEMP 98.2; O2SAT 98
[2023-01-20] MEDS ORDERED: CEFEPIME 1 GM in IV D5W 50 ML IV SCH (21:00)
[2023-01-20] MEDS: NORTRIPTYLINE HCL 10 MG CAPSULE PO SCH (21:39)
[2023-01-20] MEDS ORDERED: MEROPENEM 500MG/NS 50 ML PB IV ONE (21:43)
[2023-01-20] MEDS ORDERED: MEROPENEM 500 MG VIAL IV ONE (21:47)
[2023-01-20] MEDS: MEROPENEM 500 MG in IV NS 0.9% 50 ML IV SCH (21:50)
[2023-01-21] VITALS: BP 108/72; TEMP 97.6; O2SAT 96
[2023-01-21 04:00] VITALS: BP 115/69; TEMP 97.4; O2SAT 94
[2023-01-21] MEDS: INSULIN REGULAR, HUMAN 100 UNIT/ML 3 ML VIAL SQ PRN (05:55)
[2023-01-21 07:00] LABS: ABG BASE EXCESS -4.4 mmol/L; ABG OXYGEN SATURATION 95.7 % (92.0-98.5); ABG PCO2 39.5 mmHg (35.0-45.0); ABG PH 7.342 (7.350-7.450); ABG PO2 82.9 mmHg (75.0-100.0); ABG TOTAL HEMOGLOBIN 13.4 G/dL (13.5-18.0); COHb 0.3 % (0.5-1.5); MetHb 0.2 % (0.0-1.5); O2Hb 95.2 % (94.0-97.0); SITE, ABG Right Brachial; VENT MODE, BG NRB
[2023-01-21 07:00] LABS: ABG BASE EXCESS -8.6 mmol/L; ABG OXYGEN SATURATION 98.9 % (92.0-98.5); ABG PCO2 32.6 mmHg (35.0-45.0); ABG PH 7.319 (7.350-7.450); ABG PO2 187.1 mmHg (75.0-100.0); AaDO2 493.3 mmHg; COHb 0.3 % (0.5-1.5); MetHb 0.3 % (0.0-1.5); O2Hb 98.3 % (94.0-97.0); SITE, ABG Right Radial; VENT MODE, BG NRB
[2023-01-21 07:41] LABS: HEMATOCRIT 37 % (39-51); HEMOGLOBIN 11.9 g/dL (13.5-17.5); LYMPHOCYTES # (AUTO) 0.6 K/uL (0.8-4.8); LYMPHOCYTES % (AUTO) 2.3 % (20.0-44.0); MEAN CORPUSCULAR HEMOGLOBIN 30 PG (26.0-33.0); MEAN CORPUSCULAR HGB CONC 32 g/dl (31.0-36.0); MEAN CORPUSCULAR VOLUME 96 fL (80-96); MONOCYTES # (AUTO) 0.6 K/uL (0.1-1.30); MONOCYTES % (AUTO) 2.2 % (2.0-12.0); NEUTROPHILS # (AUTO) 24.9 K/uL (1.8-8.9); NEUTROPHILS % (AUTO) 95.5 % (43.0-81.0); PLATELET COUNT (AUTO) 113 K/uL (150-450); RED CELL DISTRIBUTION WIDTH 15.4 % (11.5-15.0); WHITE BLOOD COUNT (AUTO) 26.1 K/uL (4.3-11.0)
[2023-01-21 08:00] VITALS: BP 90/58; TEMP 97.9; O2SAT 94
[2023-01-21] MEDS ORDERED: VANCOMYCIN HCL 0.75 GM in IV D5W 250 ML IV SCH (08:00)
[2023-01-21 08:25] LABS: CHOLESTEROL 115 mg/dL (<200); HDL CHOLESTEROL 32 mg/dL (40-60); LDL 59 mg/dL (0-99); TRIGLYCERIDES 137 mg/dL (30-150)
[2023-01-21 08:26] LABS: CREATINE KINASE, TOTAL 32 U/L (39-308)
[2023-01-21 08:34] LABS: ASPARTATE AMINOTRANSFERASE 23 U/L (15-37); BILIRUBIN,TOTAL 0.4 mg/dL (0.2-1.0); CALCIUM, SERUM 8.8 mg/dL (8.5-10.1); CARBON DIOXIDE 21 mmol/L (21-32); CHLORIDE 106 mmol/L (98-107); CREATININE 2.6 mg/dL (0.6-1.3); GLUCOSE 238 mg/dL (74-106); PHOSPHORUS 4.8 mg/dL (2.5-4.9); POTASSIUM 4.3 mmol/L (3.5-5.1); SODIUM SERUM 139 mmol/L (136-145); TOTAL PROTEIN, SERUM 4.9 g/dL (6.4-8.2)
[2023-01-21] MEDS: MEROPENEM 500 MG in IV NS 0.9% 50 ML IV SCH ×2 (09:06→20:42)
[2023-01-21] MEDS: methylPREDNISolone SOD SUCC 40 MG/ML VIAL IV SCH ×2 (09:10→18:33)
[2023-01-21] MEDS: THERAHONEY GEL 1.5 OZ TUBE TP SCH (09:11)
[2023-01-21] MEDS: PANTOPRAZOLE 40 MG VIAL IV SCH (09:11)
[2023-01-21] MEDS: DAKINS QUARTER STRENGTH (0.125%) 480 ML BOTTLE TOP SCH (09:11)
[2023-01-21] MEDS ORDERED: TPN BAG #2 IV SCH ×4 (09:51)
[2023-01-21] MEDS: BLOOD SUGAR DIAGNOSTIC 1 EACH STRIP IN SCH ×2 (11:48→17:41)
[2023-01-21 12:00] VITALS: BP 93/54; TEMP 97.9; O2SAT 94
[2023-01-21] MEDS: DIGOXIN INJ 0.5 MG/2 ML AMPUL IV SCH (12:23)
[2023-01-21 12:46] LABS: ALANINE AMINOTRANSFERASE 35 U/L (12-78); ALKALINE PHOSPHATASE 90 U/L (46-116)
[2023-01-21 12:47] LABS: UREA NITROGEN, BLOOD 83 mg/dL (7-18)
[2023-01-21 16:00] VITALS: BP 88/57; TEMP 97.8; O2SAT 99
[2023-01-21 20:00] VITALS: BP 92/50; TEMP 95.7; O2SAT 100
[2023-01-21] MEDS: NORTRIPTYLINE HCL 10 MG CAPSULE PO SCH (22:00)
[2023-01-22] VITALS: BP 100/55; TEMP 96.1; O2SAT 100
[2023-01-22] MEDS: INSULIN REGULAR, HUMAN 100 UNIT/ML 3 ML VIAL SQ PRN ×4 (00:34→17:22)
[2023-01-22] MEDS: BLOOD SUGAR DIAGNOSTIC 1 EACH STRIP IN SCH ×4 (00:34→17:17)
[2023-01-22] MEDS ORDERED: TPN BAG #3 IV SCH ×2 (02:42)
[2023-01-22 04:00] VITALS: BP 95/50; TEMP 97.5; TEMP 97.8; O2SAT 100
[2023-01-22 07:06] LABS: BASOPHILS # (AUTO) 0.1 K/uL (0.0-0.2); BASOPHILS % (AUTO) 0.3 % (0.0-2.0); HEMATOCRIT 36 % (39-51); HEMOGLOBIN 11.4 g/dL (13.5-17.5); LYMPHOCYTES # (AUTO) 0.5 K/uL (0.8-4.8); LYMPHOCYTES % (AUTO) 1.5 % (20.0-44.0); MEAN CORPUSCULAR HEMOGLOBIN 30 PG (26.0-33.0); MEAN CORPUSCULAR HGB CONC 32 g/dl (31.0-36.0); MEAN CORPUSCULAR VOLUME 95 fL (80-96); MONOCYTES # (AUTO) 0.6 K/uL (0.1-1.30); NEUTROPHILS # (AUTO) 29.8 K/uL (1.8-8.9); NEUTROPHILS % (AUTO) 96.2 % (43.0-81.0); PLATELET COUNT (AUTO) 84 K/uL (150-450); RED BLOOD CELL COUNT(AUTO) 3.78 MIL/uL (4.5-6.0)
[2023-01-22 07:37] LABS: CALCIUM, SERUM 8.6 mg/dL (8.5-10.1); CARBON DIOXIDE 22 mmol/L (21-32); CHLORIDE 102 mmol/L (98-107); CREATININE 2.9 mg/dL (0.6-1.3); GLUCOSE 129 mg/dL (74-106); MAGNESIUM 1.8 mg/dL (1.8-2.4); PHOSPHORUS 4.4 mg/dL (2.5-4.9); POTASSIUM 4.4 mmol/L (3.5-5.1); SODIUM SERUM 133 mmol/L (136-145)
[2023-01-22 07:39] LABS: UREA NITROGEN, BLOOD 105 mg/dL (7-18)
[2023-01-22 08:00] VITALS: BP 98/56; TEMP 98.1; O2SAT 100
[2023-01-22] MEDS: MEROPENEM 500 MG in IV NS 0.9% 50 ML IV SCH (08:25)
[2023-01-22] MEDS: DAKINS QUARTER STRENGTH (0.125%) 480 ML BOTTLE TOP SCH (08:25)
[2023-01-22] MEDS: THERAHONEY GEL 1.5 OZ TUBE TP SCH (08:25)
[2023-01-22] MEDS: PANTOPRAZOLE 40 MG VIAL IV SCH (08:26)
[2023-01-22] MEDS: methylPREDNISolone SOD SUCC 40 MG/ML VIAL IV SCH (08:26)
[2023-01-22] MEDS ORDERED: FAT EMULSION 20% 500 ML in PREMIX 1 EA IV SCH (09:00)
[2023-01-22 10:45] LABS: ANISOCYTOSIS 1+; BAND % (MANUAL) 5 % (0.0-5.0); BASOPHILS % (MANUAL) 0 % (0.0-2.0); EOSINOPHILS % (MANUAL) 1 % (0-4); LYMPHOCYTES % (MANUAL) 3 % (16-48); MONOCYTES % (MANUAL) 2 % (0-11.0); NEUTROPHILS % (MANUAL) 89 (42-76); PLATELET ESTIMATE DECREASED
[2023-01-22] MEDS ORDERED: IV NS 0.9% 500 ML IV ONE (12:30)
[2023-01-22] MEDS: DIGOXIN INJ 0.5 MG/2 ML AMPUL IV SCH (12:45)
[2023-01-22 12:49] VITALS: BP 60/40; O2SAT 84
[2023-01-22 16:00] VITALS: BP 49/38; TEMP 96.7; O2SAT 92
[2023-01-22] MEDS ORDERED: TPN BAG #4 IV SCH ×2 (19:30)
[2023-01-23 01:58] LABS: ABG BASE EXCESS -8.1 mmol/L; ABG OXYGEN SATURATION 97.2 % (92.0-98.5); ABG PH 7.236 (7.350-7.450); ABG PO2 101.5 mmHg (75.0-100.0); ABG TOTAL HEMOGLOBIN 12.1 G/dL (13.5-18.0); AaDO2 565.5 mmHg; COHb 0.3 % (0.5-1.5); MetHb 0.4 % (0.0-1.5); O2Hb 96.5 % (94.0-97.0); SITE, ABG Right Radial; VENT MODE, BG 15 LPM NRB
[2023-01-23 08:06] LABS: PTH, INTACT 37 pg/mL (15-65)
[2023-01-23] MEDS ORDERED: TPN BAG #5 IV SCH ×4 (12:00)
[2023-01-23 13:07] LABS: *SPE A/G RATIO 0.6 (0.7-1.7); *SPE ALBUMIN 1.7 g/dL (2.9-4.4); *SPE ALPHA-1-GLOBULIN 0.4 g/dL (0.0-0.4); *SPE ALPHA-2-GLOBULIN 0.7 g/dL (0.4-1.0); *SPE BETA GLOBULIN 0.9 g/dL (0.7-1.3); *SPE GLOBULIN, TOTAL 2.7 g/dL (2.2-3.9); *SPE M-SPIKE Not Observed g/dL (Not Observed); *SPE PROTEIN TOTAL 4.4 g/dL (6.0-8.5); *SPEGAMMA GLOBULIN 0.7 g/dL (0.4-1.8)
== END 2023-01-22 18:44 | DRG 853 ==
LOC: ER 07:48 → ICU 19:35 → TELE1 01-15 09:41
PROVIDERS: ADMIT Nurse Practitioner Acute Care; ATTEND Nurse Practitioner Family
PROC: 02HV33Z Insertion of Infusion Device into Superior Vena Cava, Percutaneous Approach (ICD-10-PCS; 2023-01-12)
PROC: B548ZZA Ultrasonography of Superior Vena Cava, Guidance (ICD-10-PCS; 2023-01-12)
PROC: 0KBG0ZZ Excision of Left Trunk Muscle, Open Approach (ICD-10-PCS; principal; 2023-01-16)
PROC: 0KBF0ZZ Excision of Right Trunk Muscle, Open Approach (ICD-10-PCS; 2023-01-16)
PROC: 0KB80ZZ Excision of Left Upper Arm Muscle, Open Approach (ICD-10-PCS; 2023-01-16)
PROC: 0W9B3ZZ Drainage of Left Pleural Cavity, Percutaneous Approach (ICD-10-PCS; 2023-01-16)
DX: A41.9 Sepsis, unspecified organism (principal); G93.41 Metabolic encephalopathy; L89.104 Pressure ulcer of unspecified part of back, stage 4; L89.024 Pressure ulcer of left elbow, stage 4; J69.0 Pneumonitis due to inhalation of food and vomit; R65.21 Severe sepsis with septic shock; J96.01 Acute respiratory failure with hypoxia; I42.9 Cardiomyopathy, unspecified; J44.0 Chronic obstructive pulmonary disease with (acute) lower respiratory infection; J44.1 Chronic obstructive pulmonary disease with (acute) exacerbation; J90 Pleural effusion, not elsewhere classified; D68.69 Other thrombophilia; N39.0 Urinary tract infection, site not specified; E46 Unspecified protein-calorie malnutrition; I48.20 Chronic atrial fibrillation, unspecified; I48.92 Unspecified atrial flutter; N17.9 Acute kidney failure, unspecified; I13.0 Hypertensive heart and chronic kidney disease with heart failure and stage 1 through stage 4 chronic kidney disease, or unspecified chronic kidney disease; I50.30 Unspecified diastolic (congestive) heart failure; E78.5 Hyperlipidemia, unspecified; R62.7 Adult failure to thrive; D64.9 Anemia, unspecified; D69.6 Thrombocytopenia, unspecified; E66.01 Morbid (severe) obesity due to excess calories; I27.20 Pulmonary hypertension, unspecified; I73.9 Peripheral vascular disease, unspecified; Z66 Do not resuscitate; Z86.73 Personal history of transient ischemic attack (TIA), and cerebral infarction without residual deficits; F03.90 Unspecified dementia, unspecified severity, without behavioral disturbance, psychotic disturbance, mood disturbance, and anxiety; Z79.01 Long term (current) use of anticoagulants; F09 Unspecified mental disorder due to known physiological condition; E11.51 Type 2 diabetes mellitus with diabetic peripheral angiopathy without gangrene; S91.302A Unspecified open wound, left foot, initial encounter; S91.301A Unspecified open wound, right foot, initial encounter; X58.XXXA Exposure to other specified factors, initial encounter; Y93.9 Activity, unspecified; Y92.129 Unspecified place in nursing home as the place of occurrence of the external cause; L89.106 Pressure-induced deep tissue damage of unspecified part of back; L89.326 Pressure-induced deep tissue damage of left buttock; L89.316 Pressure-induced deep tissue damage of right buttock; L89.156 Pressure-induced deep tissue damage of sacral region; L89.100 Pressure ulcer of unspecified part of back, unstageable; L89.020 Pressure ulcer of left elbow, unstageable; R13.10 Dysphagia, unspecified; M89.8X9 Other specified disorders of bone, unspecified site; Z74.01 Bed confinement status; Z79.899 Other long term (current) drug therapy; N18.9 Chronic kidney disease, unspecified
CPT/HCPCS: 31720; 36415; 36600; 38221; 71045-TC; 76770-TC; 80048-TC; 80053-TC; 80061-TC; 80076-TC; 80202-TC; 81001; 82550-TC; 82803-TC; 82947-TC; 82962-TC; 83605-TC; 83735-TC; 83970; 84100-TC; 84132-TC; 84155; 84165; 84484-TC; 85025-TC; 85610-TC; 85730-TC; 87040-TC; 87081-TC; 87086-TC; 92526; 92611-TC; 94760-TC; 94799-TC; A4216; A4223; A6253; A6403; A9563; C9113; G0378; J0692; J1160; J1815; J1940; J2185; J2920; J3370; J3475; J3480; J3490; J7030; J7040; J7050; J7060; J7512